=== PATIENT | female | born 1980 | race Caucasian/White ===

== ENCOUNTER 2022-09-30 00:27 | Day surgery (SDC) | payer BC, SELFPAY ==
[2022-09-24 13:11] VITALS: BMI 35.4
--- NOTE | 2022-09-24 13:18 | PC.NURSE ---
Report to the Outpatient Waiting Room, entrance under the green pavilion located off [facility], at time 1130 on date 09/30/22. Planned Procedure Time: 1330. Time changes happen often and if your time is changed the preop area will call you the afternoon before. - You and your visitor will be asked to self-screen and do not enter if you have any COVID symptoms. - Only one visitor is requested with a max of two and NO children visitors are allowed at this time. - The patient visitor may be requested to leave or wait in car when not with patient due to distancing restrictions. - A mask is optional within the hospital at this time. Patients may have clear liquids (water, carbonated beverages, clear teas, apple juice) until 3 hours prior to surgery with a maximum of 20 ounces. - No food from midnight until time of surgery Take the following medications with a SIP of water the morning of surgery: LAMOTRIGINE DO NOT STOP ANY OF YOUR OTHER PRESCRIPTION MEDICATIONS PRIOR TO SURGERY EXCEPT THE FOLLOWING Medications to discontinue per physician: N/A Date to take last dose: N/A Please no make-up, nail citizen of [place], hairspray, perfume, deodorant, or body powder the day of surgery. No jewelry (including any body piercings) or valuables the day of surgery, leave them at home. Please take a shower or bath the night before, or the morning of, surgery with an antibacterial soap. Wear comfortable, loose fitting clothing. - Jewelry must be removed prior to entering the operating room. Rings and piercings that are not removed may be cut off. - The hospital will not accept responsibility for valuables. - Please leave all valuables, including medications, at home the day of surgery. If you are going home after surgery, a licensed lead driver must drive you home. - NO public transportation without another adult if you receive anesthesia. - We recommend that an adult stay with you for 24 hours following discharge. - We also recommend that you do not drive, make important decision, drink alcoholic beverages, or take any drugs that were not prescribed by your health care provider for at least 24 hours after your discharge time. Follow any additional instructions given to you from your surgeon. If you or anyone in your household have experienced Covid symptoms in the past week, please notify your surgeon or the nurse liaison at the phone number below for possible testing. Telephone instructions given to PT - ABDIRAHMAN MARROQUIN and asked if any additional questions and then verbalized understanding. Patient advised to call surgeon office or pre surgery nurse liaison [phone] if any additional questions.
--- NOTE | 2022-09-27 08:14 | PM.IMHP ---
H&P: HPI History of Present Illness Date/Time: 09/27/22 08:14 Chief Complaint: pelvic organ prolapse, stress incontinence Narrative: this is a woman who is seen in the facility. She was in the middle of a workup for prolapse repair. They found a bladder lesion recommended biopsy. This is been done with negative findings. She continues to have a symptomatic vaginal bulge and stress incontinence documented on exam. She would like this corrected Review of Systems Review of Systems: All systems reviewed & are unremarkable except as noted in HPI and below [facility] Social History Social History Smoking packs per day: 1 Smoking cigarettes per day: 20.0 Years smoked: 29 Smoking pack-years: 29.00 Smoking status: Current every day smoker Tobacco type: cigarettes Alcohol intake: current Drinks per week: 5 Substance use: never Substance use type: does not use Living arrangements: alone Spiritual care concerns: No Meds Home Medications and Allergies Home Medications Medication Instructions Recorded Confirmed Type cetirizine 5 mg-pseudoephedrine ER 1 tablet PO BID 09/24/22 09/24/22 History 120 mg tablet,extended release,12hr (Zyrtec-D) lamotrigine 300 mg tablet,extended 300 mg PO DAILY 09/24/22 09/24/22 History release 24 hr losartan 50 mg tablet 50 mg PO DAILY 09/24/22 09/24/22 History montelukast 10 mg tablet 10 mg PO DAILY 09/24/22 09/24/22 History (Singulair) omeprazole 40 mg capsule,delayed 40 mg PO DAILY 09/24/22 09/24/22 History release Allergies Allergy/AdvReac Type Severity Reaction Status Date / Time No Known Allergies Allergy Verified 09/24/22 13:08 Exam Narrative: no acute distress normal breathing alert and orient x3 cystocele to the introitus apex at minus 6 rectocele to the hymenal ring urethral mobility Assessment and Plan Assessment and plan (1) Cystocele: Status: Acute (2) Rectocele: Code(s): N81.6 - Rectocele Status: Acute (3) OUSMANE (stress urinary incontinence, female): Code(s): N39.3 - Stress incontinence (female) (male) Status: Acute Plan cystocele repair, possible rectocele repair, urethral sling. Understands risks of bleeding, infection, damage drained organs, damage to the bowel or urinary tract, fistula formation, recurrence of prolapse, postoperative voiding dysfunction including incontinence and retention, hip and leg pain, dyspareunia, mesh exposure, mesh extrusion into the vagina or urinary tract. She agrees to proceed. On exam she has reasonable apical support so colpopexy or apical procedure is not Needed
--- NOTE | 2022-09-30 07:15 | WPDHPUPDATE1 ---
History and Physical Update Update Date/Time: 09/30/22 07:15 History and Physical has been reviewed, including an updated exam of the patient. There are NO changes in the patient's condition. Risks, benefits, and alternatives have been discussed and questions answered. Patient agrees to proceed with procedure.
[2022-09-30] MEDS: LACTATED RINGERS 1,000 ML 30 ML IV CONT ×2 (11:57→13:55)
[2022-09-30 11:59] VITALS: BP 132/60; PULSE 86; RESP 16; TEMP 36.3; O2SAT 98
--- NOTE | 2022-09-30 12:27 | P.PNAN_ITS ---
Anes - Initial Pre Proc Eval Procedure: Operation Date: 09/30/22 13:30 Proposed Procedures p Cystocele and Rectocele Repair, - Rangel Correa MD s Urethral Sling - Rangel Correa MD Date/Time: 09/30/22 12:27 Surgeon: Rangel Correa MD Pre Op Diagnosis: cystocele, rectocele, stress incontinence Patient Data Age: 42 Gender: F Height: 1.6 m Weight: 89.7 kg Last Vital Signs Temp 97.3 F L 09/30/22 11:59 Pulse 86 09/30/22 11:59 Resp 16 09/30/22 11:59 BP 132/60 09/30/22 11:59 Pulse Ox 98 09/30/22 11:59 O2 Del Method Room Air 09/30/22 11:59 Allergies Allergy/AdvReac Type Severity Reaction Status Date / Time No Known Allergies Allergy Verified 09/30/22 11:46 Home Medications Medication Instructions Recorded Confirmed Type cetirizine 5 mg-pseudoephedrine ER 1 tablet PO BID 09/24/22 09/30/22 History 120 mg tablet,extended release,12hr (Zyrtec-D) lamotrigine 300 mg tablet,extended 300 mg PO DAILY 09/24/22 09/30/22 History release 24 hr losartan 50 mg tablet 50 mg PO DAILY 09/24/22 09/30/22 History montelukast 10 mg tablet 10 mg PO DAILY 09/24/22 09/30/22 History (Singulair) omeprazole 40 mg capsule,delayed 40 mg PO DAILY 09/24/22 09/30/22 History release Patient hx anesthesia problems: none Family hx anesthesia problems: none Results Review: All pre-operative results and documents have been reviewed as part of the pre- operative evaluation. [facility] Social History Social History Smoking packs per day: 1 Smoking cigarettes per day: 20.0 Years smoked: 29 Smoking pack-years: 29.00 Smoking status: Current every day smoker Tobacco type: cigarettes Alcohol intake: current Drinks per week: 5 Substance use: never Substance use type: does not use Living arrangements: alone Spiritual care concerns: No Anes - Eval Final PreProcedure Day of Procedure 09/30/22 12:27 Patient weight: obese Heart: regular rate and rhythm Lungs: clear to auscultation Airway: Mallampati scale class II Neurological: alert and oriented Last oral intake: >/= 8 hours ASA classification: III Emergent: no Anesthetic plan: proceed Anesthesia type and monitoring: general LMA and standard monitoring Results Review: All pre-operative results and documents have been reviewed as part of the pre- operative evaluation. Informed Consent: The patient's anesthetic plan and its attendant risks and benefits were discussed with the patient/family/POA. Questions were solicited and answers provided to the satisfaction of the patient/family/POA.
[2022-09-30] MEDS: ceFAZolin 2 GM/D5W 50 ML 2 GM/50 ML BAG IVPB (12:55)
[2022-09-30] MEDS: KETOROLAC 30 MG/ML VIAL (*BKC) IV PUSH (13:25)
[2022-09-30] MEDS: BUPIVACAINE/EPINEPHRINE 0.25% 10 ML VIAL INFILTRATE (13:30)
[2022-09-30] MEDS: BUPIVACAINE/EPINEPHRINE 0.5% 50 ML VIAL 30 ML INFILTRATE (13:31)
[2022-09-30 13:55] VITALS: BP 116/83; PULSE 90; RESP 18; TEMP 36.3; O2SAT 100
--- NOTE | 2022-09-30 14:02 | W.PM.PROC2 ---
Procedure Note - Detailed Date of Procedure 09/30/22 Pre-op Diagnosis rectocele, stress incontinence Post-op Diagnosis Same Procedure Performed Rectocele repair mid urethral sling cystoscopy Surgeon Rangel Correa MD [employer] Anesthesia General Indications This is a female with confirm stress urinary incontinence as well as rectocele. She desires surgical correction. She understands the risks of bleeding, infection, injury to the urinary tract, injury to the bowel, dyspareunia, recurrence of prolapse, vaginal mesh extrusion, urinary tract mesh erosion, obstructive voiding requiring a secondary procedure, hip and leg pain, dyspareunia, inability to improve overactive bladder symptoms. She agrees to proceed. Description of Procedure She was correctly identified. Informed consent obtained. She was brought the operating room. She was given appropriate anesthesia. She was given appropriate perioperative antibiotics. A time-out performed. I placed a [place] retractor. I placed Spann catheter. She had minimal cystocele. She had rectocele to the introitus. I grasped the rectocele with Allis clamps. I infiltrated subcutaneous tissues with local mixed with saline. Midline vaginal incision on the posterior wall. I dissected the mucosa off the underlying fascial structures laterally and to the apex. I then performed interrupted plication type rectocele repair using 0 Vicryl suture. This reduced the rectocele completely. I took great care not to injure the underlying rectum. I trimmed minimal excess vaginal mucosa. I then closed the vaginal mucosa with a running 2-0 Vicryl suture. There was excellent hemostasis. Again there was no significant cystocele which would require repair. I then turned my attention towards the sling. I marked out the site of the inner thigh incisions. I anesthetized the skin and made those incisions. I anesthetized the anterior vaginal wall over the mid urethra. I made a 1 cm incision. I dissected out laterally taking great care not to injure the refilled vaginal wall. I passed the helical trocars. First on the left. Then on the right. I did this from the thigh incision towards the vaginal incision. The sling was connected to the trocars and brought out through the thigh incision. I tensioned the sling appropriately. I cut and the plastic sheaths. I then closed the incision with 2 0 Vicryl. On cystoscopy there is no tumors or surgical artifact. There was no surgical artifact in the urethra. I cut the excess sling material. Close incisions with glue. She was awakened and transferred to the PACU in stable condition. Implants Urethral sling Estimated Blood Loss -50.0 Drains No Packing No Pathology None sent Complications No immediate complications Condition Stable Disposition PACU
[2022-09-30 14:05] VITALS: BP 119/76; PULSE 77; RESP 14; O2SAT 100
--- NOTE | 2022-09-30 14:08 | SUR.PHASEI ---
1405 - pt voided without difficulty.
[2022-09-30 14:20] VITALS: BP 109/65; PULSE 78; RESP 16; O2SAT 97
[2022-09-30 14:30] VITALS: BP 133/92; PULSE 75; RESP 16
[2022-09-30 15:00] VITALS: BP 136/75; PULSE 71; RESP 16
== END 2022-09-30 15:15 | disposition home or self-care (01) ==
PROVIDERS: PCP Family Medicine; Visit Provider Urology
PROC: (CPT 57260; principal; 2022-09-30 13:30)
PROC: (CPT 57288; 2022-09-30 13:30)
DX: N81.6 Rectocele (principal); N39.3 Stress incontinence (female) (male); F17.210 Nicotine dependence, cigarettes, uncomplicated; E66.9 Obesity, unspecified; Z68.35 Body mass index [BMI] 35.0-35.9, adult
CPT/HCPCS: 57288; 57250; C1771; J0690; J1100; J1885; J2250; J2405; J2704; J3010; J7030; J7120